=== PATIENT | female | born 1960 | race American Indian/Alaskan Native ===

== ENCOUNTER 2018-08-20 09:53 | Day surgery (SDC) | payer BC ==
[2018-08-12 09:09] VITALS: BMI 29.9
[2018-08-20 10:28] VITALS: TEMP 98.3
[2018-08-20 10:40] LABS: BASO # 0.03 K/mm3 (0.0-2.0); BASO % 0.3 % (0.0-3.0); EOS # 0.1 (0.0-0.7); EOS % 1.1 % (1.5-5.0); HEMOGLOBIN 11.3 g/dL (12.0-16.0); LYMPH # 4.4 (1.2-3.4); LYMPH % 43.9 % (22.0-35.0); MEAN CELL VOLUME 87.5 fl (80.0-105.0); MEAN CORPUSCULAR HEMOGLOBIN 28.8 pg (25.0-35.0); MEAN CORPUSCULAR HGB CONC 32.8 g/dl (31.0-37.0); MEAN PLATELET VOLUME 8.9 fl (7.0-11.0); MONO # 0.7 (0.1-0.6); MONO % 6.6 % (1.0-6.0); RBC 3.93 10^6/uL (3.5-6.1); RED CELL DISTRIBUTION WIDTH 15.1 % (11.5-14.5)
[2018-08-20 10:49] LABS: BLOOD UREA NITROGEN 12 mg/dL (7-21); CALCIUM 9.3 mg/dL (8.4-10.5); GFR NON-AFRICAN AMERICAN > 60; INR 1.19; PARTIAL THROMBOPLASTIN TIME 34.4 Seconds (26.9-38.3); PROTHROMBIN TIME 13.5 SECONDS (9.4-12.5)
[2018-08-20] MEDS ORDERED: Midazolam 2 MG/2 ML VIAL ONE ×2 (12:14→12:47)
[2018-08-20] MEDS ORDERED: Midazolam 2 MG/2 ML VIAL IVP ONE (12:45)
[2018-08-20] MEDS ORDERED: Sodium Chloride 0.45% 1,000 ML IV SCH (13:00)
[2018-08-20 15:49] VITALS: BP 118/68; PULSE 83; RESP 18; O2SAT 96
--- NOTE | 2018-08-20 15:53 | RAD ---
Date of service: 08/20/2018 HISTORY: rt lung bx COMPARISON: No prior. TECHNIQUE: 1 view obtained. FINDINGS: LUNGS: There is a focal right upper lobe infiltrate which may represent a post biopsy hemorrhage. There is no evidence of pneumothorax PLEURA: No significant pleural effusion identified, no pneumothorax apparent. CARDIOVASCULAR: No aortic atherosclerotic calcification present. Normal cardiac size. No pulmonary vascular congestion. OSSEOUS STRUCTURES: No significant abnormalities. VISUALIZED UPPER ABDOMEN: Normal. OTHER FINDINGS: None. IMPRESSION: There is a focal right upper lobe infiltrate which may represent a post biopsy hemorrhage. There is no evidence of pneumothorax
--- NOTE | 2018-08-20 19:24 | CT ---
PROCEDURE: CT guided right upper lobe lung biopsy. HISTORY: 3 cm cavitary mass right upper lobe. Evaluate for malignancy PHYSICIAN(S): Tj Licea MD. TECHNIQUE: The relative risks and indications of the procedure were explained to the patient and consent obtained. The patient was placed prone on the CT scanner and preliminary images through the lung apices obtained. Conscious sedation and monitoring were provided throughout the procedure by a nurse. There is a 3 cm cavitary mass with irregular borders in the right upper lobe posteriorly. A right posterior approach was selected and the area prepped and draped in the usual sterile fashion. 1% Xylocaine was used to anesthetize the skin and soft tissues. A 19 gauge guiding needle was advanced into the 3 cm cavitary mass laterally.. Its position was confirmed with CT. Using coaxial technique, multiple core biopsies were obtained. The postprocedure images show no evidence of large pneumothorax or significant hemorrhage. IMPRESSION: 1. CT-guided right upper lobe lung biopsy as described above.
== END 2018-08-20 16:30 | disposition home or self-care (01) ==
LOC: SDS 09:53
PROVIDERS: ATTEND Radiology Vascular & Interventional Radiology
DX: R91.1 Solitary pulmonary nodule (principal); R91.8 Other nonspecific abnormal finding of lung field; E11.9 Type 2 diabetes mellitus without complications; I10 Essential (primary) hypertension
CPT/HCPCS: 32405; 36415; 71045; 77012; 80048; 85025; 85610; 85730; 88305; J2250; J2405; J3010; J7030